=== PATIENT | female | born 1985 | race Native Hawaiian/Other Pacific Islander ===

== ENCOUNTER 2017-06-25 12:04 | Emergency (ER) | payer MEDICARE ==
[2017-06-25] MEDS ORDERED: Sodium Chloride 0.9% 1,000 ML IV ONE (13:52)
[2017-06-25] MEDS ORDERED: Sodium Chloride 0.9% 1,000 ML ONE (14:07)
--- NOTE | 2017-06-25 14:09 | C.PDOC ---
History Of Present Illness 31 y/o female presents to the ED complaining of nausea, vomiting, and abdominal pain that began this morning. Patient denies any associated fever, chills, dysuria, frequency, or back pain. No sick contacts. Patient denies recent travel or exposure to new foods. Of note patient reports having intermittent episodes of dizziness and room spinning, but denies dizziness currently. Time Seen by Provider: 06/25/17 12:40 Chief Complaint (Nursing): Abdominal Pain History Per: Patient History/Exam Limitations: no limitations Onset/Duration Of Symptoms: Hrs Current Symptoms Are (Timing): Still Present Radiation Of Pain To:: None Past Medical History Reviewed: Historical Data, Nursing Documentation, Vital Signs Vital Signs: Last Vital Signs Temp 97.6 F 06/25/17 16:28 Pulse 83 06/25/17 16:28 Resp 18 06/25/17 16:28 BP 96/60 L 06/25/17 16:28 Pulse Ox 100 06/25/17 16:28 - Medical History PMH: Bipolar Disorder, Depression Surgical History: No Surg Hx Family History: States: Unknown Family Hx - Social History Hx Tobacco Use: No Hx Alcohol Use: No Hx Substance Use: No - Immunization History Hx Tetanus Toxoid Vaccination: No Hx Influenza Vaccination: No Hx Pneumococcal Vaccination: No Review Of Systems Except As Marked, All Systems Reviewed And Found Negative. Constitutional: Negative for: Fever, Chills Gastrointestinal: Positive for: Nausea, Vomiting, Abdominal Pain. Negative for : Diarrhea Genitourinary: Negative for: Dysuria, Frequency Musculoskeletal: Negative for: Back Pain Physical Exam - Physical Exam Appears: Non-toxic, No Acute Distress Skin: Normal Color, Warm, Dry, No Rash Head: Atraumatic, Normacephalic Eye(s): bilateral: Normal Inspection, PERRL, EOMI Ear(s): Bilateral: Normal Oral Mucosa: Moist Neck: Normal ROM, Supple Chest: Symmetrical Cardiovascular: Rhythm Regular, No Friction Rub, No Murmur Respiratory: Normal Breath Sounds, No Rales, No Rhonchi, No Wheezing Gastrointestinal/Abdominal: Bowel Sounds (active), Soft, No Tenderness, No Guarding, No Rebound Extremity: Bilateral: Atraumatic, Normal Color And Temperature, Normal ROM Neurological/Psych: Oriented x3, Normal Speech, Normal Motor ED Course And Treatment - Laboratory Results Result Diagrams: 06/25/17 14:20 06/25/17 14:20 O2 Sat by Pulse Oximetry: 99 (RA) Pulse Ox Interpretation: Normal Medical Decision Making Medical Decision Making: Time: 13:52 Initial Plan: * Lipase * CMP * CBC * Urinalysis * IV fluids * Pepcid 20 mg IVP * Toradol 30 mg IVP * Zofran 4 mg IVP * CT abdomen/pelvis 15:25 Pt reports feeling better after meds given, and does not want CT scan. On re- exam, the patient reports improvement of symptoms. Lugs are CTA, heart is RRR, Abdomen is soft, non-tender and the patient is tolerating PO well. Follow up with the medical doctor within 1-2 days. REturn if worsened. Disposition - Disposition Referrals: [facility] at [facility] [Outside] Disposition: HOME/ ROUTINE Disposition Time: 16:01 Condition: GOOD Additional Instructions: Follow up with medical doctor within 1-2 days. Return if worsened. Prescriptions: Ondansetron ODT [Zofran ODT] 1 odt PO BID PRN #10 odt PRN Reason: Nausea/Vomiting Instructions: Viral Gastroenteritis Forms: [employer] (Lithuanian) - POA Present On Arrival: None - Clinical Impression Clinical Impression: Gastroenteritis - PA / DISTRIBUTION ANALYST / Resident Statement MD/DO has reviewed & agrees with the documentation as recorded. - Scribe Statement The provider has reviewed the documentation as recorded by the Scribe (Yady Phoenix) All medical record entries made by the Scribe were at my direction and personally dictated by me. I have reviewed the chart and agree that the record accurately reflects my personal performance of the history, physical exam, medical decision making, and the department course for this patient. I have also personally directed, reviewed, and agree with the discharge instructions and disposition.
[2017-06-25 14:23] LABS: BASO % 0.1 % (0.0-2.0); EOS # 0.2 K/uL (0.0-0.7); EOS % 2.6 % (0.0-4.0); HEMOGLOBIN 13.3 g/dL (11.0-16.0); LYMPH # 0.5 K/uL (1.0-4.3); LYMPH % 5.8 % (20.0-40.0); MEAN CELL VOLUME 83.3 fL (81.0-99.0); MEAN CORPUSCULAR HEMOGLOBIN 28.2 pg (27.0-31.0); MEAN CORPUSCULAR HGB CONC 33.8 g/dL (33.0-37.0); MEAN PLATELET VOLUME 9.8 fL (7.2-11.7); MONO # 0.3 K/uL (0.0-0.8); MONO % 4.4 % (0.0-10.0); NEUT % 87.1 % (50.0-75.0); PLATELET COUNT 150 K/uL (130-400); RBC 4.73 Mil/uL (3.80-5.20)
[2017-06-25 14:32] LABS: HCG,QUALITATIVE URINE NEGATIVE (NEGATIVE)
[2017-06-25 14:34] LABS: SQUAMOUS EPITHIAL 4 /hpf (0-5); URINE BILIRUBIN NEGATIVE (NEGATIVE); URINE BLOOD 1+ (NEGATIVE); URINE CLARITY Clear (Clear); URINE COLOR Yellow (YELLOW); URINE GLUCOSE (UA) NORMAL (Normal); URINE LEUKOCYTE ESTERASE 1+ Leu/uL (Negative); URINE PROTEIN NEGATIVE (NEGATIVE); URINE UROBILINOGEN NORMAL mg/dL (0.2-1.0)
[2017-06-25 14:39] LABS: ALB/GLOB RATIO 1.2 (1.0-2.1); ALBUMIN 4.2 g/dL (3.5-5.0); ALT/SGPT 21 U/L (9-52); AST/SGOT 29 U/L (14-36); BLOOD UREA NITROGEN 9 mg/dL (7-17); CALCIUM 8.7 mg/dl (8.6-10.4); GFR AFRICAN-AMERICAN > 60; GFR NON-AFRICAN AMERICAN > 60; LIPASE 35 U/L (23-300)
[2017-06-25 14:47] LABS: BANDS 5 % (0-2); EOSINOPHIL 1 % (0-4); LYMPHOCYTE 8 % (20-40); MONOCYTE 5 % (0-10); NEUTROPHIL 81 % (50-75); PLATELET ESTIMATE NORMAL (NORMAL); TOTAL CELLS COUNTED 100
[2017-06-25 14:48] LABS: OVALOCYTES SLIGHT
[2017-06-25 16:30] VITALS: BP 96/60; PULSE 83; RESP 18; TEMP 97.6
[2017-06-29 12:39] VITALS: O2SAT 99
== END 2017-06-25 16:30 | disposition home or self-care (01) ==
LOC: C.ER 12:04
DX: K52.9 Noninfective gastroenteritis and colitis, unspecified (principal)
CPT/HCPCS: 80053; 81001; 83690; 84703; 85025; 96374; 96375; 99284; J1885; J2405; J7040